=== PATIENT | female | born 1995 | race Caucasian/White ===

== ENCOUNTER 2023-12-27 09:02 | Outpatient (AMB) | payer BC, SELFPAY ==
--- NOTE | 2023-12-27 09:07 | A.OFFPC_ITS ---
Vital Signs 12/27/23 09:15 Height 5 ft 3 in Weight 205 lb 8 oz BMI 36.4 BP 112/70 Blood Pressure Location Lt brachial Position Sitting Respiration 16 Pulse 82 Pulse Source Pulse Oximeter Temp 98.2 F Temp Source Oral Pulse Oximetry (%) 96 Oxygen Delivery Method Room Air Intake Visit Reasons: [id number] Intake Note: patient here for new patient visit. Moisture Tester Required: No Is last menstrual period known: Yes Last menstrual period: 12/01/23 Post menopausal: No Patient : No Allergies No Known Allergies Allergy (Verified 12/27/23 09:21) Tobacco use date assessed: 12/27/23 Dental Screening Dental Screen Date: 12/27/23 Did you have a dental visit in the last 12 months?: Yes Did you have a dental problem in the last 6 months where you did not have access to dental care?: No Was dental information given to patient?: Patient has dentist HPI HPI Comments History of Present Illness Details New patient Prior PCP:?Freddy Ernst. Dr. Jessica Hayes Last office visit/CPE: About 2 month. Last extended physical exam was a year ago Acute issue(s): Hypothyroidism -She is on levothyroxine 25 mcg daily HLD -Diagnosed 2 months ago. Was not prescri bed medications Prediabetes She admits to healthy lifestyle, including healthy diet and exercise. She lost 30 lb within the last 4 months. ;She sleeps well PMHx: Hypothyroidism, prediabetes, HLD, perforated left TM (childhood) SurgHx: Oral surgery FHx: Mom: DM, HTN, HLD, Substance abuse. MGF: Clotting disorder, HTN, HLD. MGM: DM, HTN, HLD, lung cancer SocHx: Smokes 5 cigarettes daily and has been smoking for about 13 years; no more than 5 cigarettes daily. Does not drink alcohol. No recreational drugs Last eye exam was at childhood Last dental visit was a month ago Last tetanus vaccine unknown She has not been vaccinated for the flu this season but plans to get vaccinated for it at her workplace Last pap smear test was with [facility] DATA MIGRATION CONSULTANT was in 05/2023: normal. She will sign a release for her PCP to obtain record [facility] Medical History (Updated 12/27/23 @ 10:02 by Paula Cates CNP) Thyroid disease Diabetes High cholesterol Surgical History (Updated 12/27/23 @ 09:25 by Leilani Nicole MA) H/O oral surgery Family History (Updated 12/27/23 @ 09:23 by Leilani Nicole MA) Mother Substance abuse High blood pressure High cholesterol Diabetes Maternal Grandfather High blood pressure High cholesterol Clotting disorder Maternal Grandmother High blood pressure High cholesterol Diabetes Lung cancer Brother High cholesterol Social History Housing: House Patient Tobacco Use Status: Current everyday Tobacco user Tobacco use type: Cigarette Cigarette Packs Per Day: 0 Cigarettes Per Day: 5 Years Smoked: 0ver 10 years e-Cigarette/Vaping Use: Never Used Second Hand Smoke Exposure: No service: No Current occupational status: employed Current occupation: [employer] Current occupational exposures/hazards: Yes Cognitive needs: No Hearing needs: No Vision needs: No Female Reproductive History Menstrual Date of last menstrual period: 12/01/23 Questionnaire PHQ-9 Over the last 2 weeks, how often have you been bothered by any of the following problems? 1. Little interest or pleasure in doing things: not at all 2. Feeling down, depressed, or hopeless: not at all 3. Trouble falling or staying asleep, or sleeping too much: not at all 4. Feeling tired or having little energy: not at all 5. Poor appetite or overeating: not at all 6. Feeling bad about yourself - or that you are a failure or have let yourself or your family down: not at all 7. Trouble concentrating on things, such as reading the newspaper or watching television: not at all 8. Moving or speaking so slowly that other people could have noticed. Or the opposite - being so fidgety or restless that you have been moving around a lot more than usual: not at all 9. Thoughts that you would be better off or of hurting yourself in some way: not at all Total score: 0 Depression Screening Interpretation: Negative Depression Screening Done: Yes 57581 - PHQ-9 Billing: Yes Source: Developed by Drs. Stephan Bond, Angela Doe, Vasu Walker and colleagues, with an educational denton from [employer] Thrive Questionnaire Date Thrive assessed: 12/27/23 I am a: Patient What is your living situation today?: I have a steady place to live Within the past 12 months, did the food you bought not last and you didn't have the money to get more?: Never true Within the past 12 months, did you worry whether your food would run out before you got money to buy more?: Never true Do you have trouble paying for medicines?: No Do you have trouble getting transportation to medical appointments?: No Do you have trouble paying your heating and electricity bill?: No Do you have trouble taking care of your child, family member or friend?: No Do you have trouble with day-to-day activities such as bathing, preparing meals, shopping, managing finances, etc.?: No Are you currently unemployed and looking for a job?: No Are you interested in more education?: No Please select the resources that you would like help with: None Currently or been in a relationship where the following occur: No concerns re ported THRIVE Score: 0 AUDIT C Alcohol Use Questionnaire (AUDIT-C) 1. How often do you have a drink containing alcohol?: Never 3. How often do you have six or more drinks on one occasion?: Never Total Score: 0 Score Reviewed/Action Taken: Yes CURTIS-7 AMB Questionnaire CURTIS-7 Date CURTIS - 7 assessed: 12/27/23 Feeling nervous, anxious, or on edge: 0 = Not at all Not being able to stop or control worryin = Not at all Worrying too much about different things: 0 = Not at all Trouble relaxin = Not at all Being so restless that it is hard to sit still: 0 = Not at all Becoming easily annoyed or irritable: 0 = Not at all Feeling afraid as if something awful might happen: 0 = Not at all Total CURTIS-7 score (0-4 normal; 5-9 mild; 10-14 moderate; 15-21 severe): 0 Source: Developed by Drs. Stephan Bond, Angela Doe, Vasu Walker and colleagues, with an educational denton from [employer] CURTIS-7 Assessment Billing CURTIS-7 Assessment Tool: CURTIS-7 Assessment 53046 Review of Systems Const Details: Denies chills, Denies fatigue, Denies fever(s), Denies headache(s) and Denies weakness HEENT Denies change in vision, Denies dizziness, Denies headache(s), Denies hearing loss, Denies nasal congestion, Denies sinus pain, Denies sinus pressure and Denies sore throat Card Denies chest pain, Denies lightheadedness, Denies dyspnea and Denies other (palpitations) Resp Denies cough, Denies dyspnea and Denies wheezing GI Denies abdominal pain, Denies melena, Denies hematochezia, Denies change in bowel habits, Denies dyspepsia and Denies nausea Denies hematuria and Denies dysuria Musc Denies abnormal gait, Denies myalgias, Denies arthralgias, Denies numbness and Denies tingling Skin/Breast Denies rash, Denies unusual bruising and Denies wounds Neuro Denies abnormal gait, Denies dizziness, Denies headache(s), Denies memory loss, Denies numbness, Denies Sensory deficit (Neuro), Denies tingling and Denies weakness Psych Denies anxiety, Denies depression and Denies memory loss Endo Denies cold intolerance, Denies fatigue, Denies heat intolerance, Denies polydipsia and Denies polyuria Alexander/Lymph Denies easy bleeding and Denies easy bruising Aller/Immun Denies wheezing Physical exam (Primary Care) Vital Signs: Last Vital Signs Temp 98.2 F 12/27/23 09:15 Pulse 82 12/27/23 09:15 Resp 16 12/27/23 09:15 BP 112/70 12/27/23 09:15 Pulse Ox 96 12/27/23 09:15 Oxygen Delivery Method Room Air 12/27/23 09:15 BMI result Body Mass Index 36.4 Tobacco/Smoking Status: Tobacco use Status Tobacco use date assessed 12/27/23 12/27/23 09:14 Patient Tobacco Use Status Current everyday Tobacco 12/27/23 09:14 Tobacco use type Cigarette 12/27/23 09:14 e-Cigarette/Vaping Use Never Used 12/27/23 09:14 PHQ-9: PHQ-9 Score PHQ-9: Total score 0 12/27/23 10:06 Depression Screening Interpretation: Negative Thrive Assessment: Date of Thrive Assessment Date Thrive assessed 12/27/23 12/27/23 09:25 Currently or been in a relationship where the following occur: No concerns reported Const Other: General: no acute distress, well developed, alert and awake Nutritional Appearance: well nourished Orientation/consciousness: patient oriented x3 HENMT Head: Yes normocephalic and Yes atraumatic Ears: hearing grossly normal bilaterally and right TM's normal; impacted cerumen of the left ear occluding the left TM General nose exam: Normal external nose present and Normal nares present Mouth: Normal oral and palatal mucosa present and moist mucous membranes Teeth and gingiva: dentition normal Throat: Yes oropharynx normal Eyes Pupils: Equal, round and reactive pupils present and Pupil accommodation reflex normal EOM: EOMs intact bilaterally Neck Neck: Yes normal visual inspection, Yes no lymphadenopathy and Yes trachea midline Thyroid: Thyroid normal Carotids: no bruits Lymphatic: no lymphadenopathy noted Chest Chest palpation & inspection: normal inspection of the chest Resp Effort & Inspection: normal respiratory effort Auscultation: clear to auscultation bilaterally Cardio Rate: regular rate Rhythm: regular rhythm Heart sounds: S1 normal heart sound present, S2 normal heart sound present, no gallops, no murmurs and no rubs Bruits: no abdominal aortic bruits and no carotid bruits GI Palpation (GI): No Abdominal aortic bruit present, Soft to palpation, nontender, No hepatosplenomegaly present and No Rebound tenderness present Auscultation: normal bowel sounds General: Yes no CVA tenderness Back/Spine/Pelvis Back: no CVA tenderness Cervical Spine: cervical ROM normal and No Cervical spine tenderness Thoracic/Lumbar Spine: thoraco-lumbar ROM normal, No pain with thoraco-lumbar ROM, No thoracic spinal tenderness and No lumbar spinal tenderness Skin General: warm and dry. Normal skin color. Normal skin turgor Lesions: no lesions Rashes: no rashes Trauma: no lacerations or abrasions Wounds: no wounds Nails: normal Neuro General: patient oriented x3, gait normal and CN's II-XI intact bilaterally Cranial nerves: Yes Equal, round and reactive pupils present Cognition (Neuro): normal cognition Gait exam (Neuro): Normal gait present Motor exam (neuro): 5/5 motor strength present throughout Sensory Exam: No Sensory deficit (Neuro) Deep tendon reflexes (DTR's): Right patellar reflex intensity grade: 2+ and Left patellar reflex intensity grade: 2+ Extrem General: Yes normal to inspection, No edema and No calf tenderness Psych Appearance: grossly normal Affect: normal affect Attitude: cooperative Thought process: Normal thought process present Immunizations Boostrix Tdap 2.5 Lf unit-8 mcg-5 Lf/0.5 mL intramuscular syringe Performing Provider: Paula Cates CNP Performing Location: [facility] Administered by: Fátima Lomeli RN on 12/27/23 10:00 Dose Route Admin Location Dispensed Lot Number Expiration Date [facility] Clarity Developer 0.5 mL IM Right Deltoid 0.5 mL [id number] 12/31/25 [id number] [employer]LA[employer]OSMITH[employer] VIS Given Date VIS Provided VIS Publication Date 12/27/23 Single Vaccine 20 Eligibility Eligibility Date Funding Source Not [facility] Eligible 12/27/23 Private Coding Level of Care Code New Pt Prev Care 18-39yr([id number] Diagnoses Normal physical examination, routine Z00.00 Prediabetes R73.03 Hypothyroidism E03.9 Obesity (BMI 30-39.9) E66.9 Impacted cerumen of left ear H61.22 Routine eye exam Z01.00 Vaccine for tetanus toxoid Z23 Laboratory tests ordered as part of a complete physical exam (CPE) Z00.00 Additional Codes CURTIS-7 Assessment Billing - CURTIS-7 Assessment Tool: CURTIS-7 Assessment 92158 ([id number]) Assessment & Plan Assessment & Plan (1) Normal physical examination, routine: Code(s): Z00.00 - Encounter for general adult medical examination without abnormal findings Category: Medical Plan: No significant physical restrictions or limitations noted Healthy diet and routine exercise encouraged Advised to get lab work done and follow-up for telehealth visit in 2-3 weeks for labs review Return with symptoms or concerns Verbalized understanding and agreed with treatment plan (2) Prediabetes: Code(s): R73.03 - Prediabetes Category: Medical Plan: History of prediabetes. Will check A1c (3) Hypothyroidism: Code(s): E03.9 - Hypothyroidism, unspecified Category: Medical Plan: Currently on levothyroxine 25 mcg daily Will check TSH/T4 levels and make changes as needed (4) Obesity (BMI 30-39.9): Code(s): E66.9 - Obesity, unspecified Category: Medical Plan: She currently weighs 205 lb, BMI is 36.4 Declines referral for weight management at this time and notes she will continue with healthy lifestyle. She lost 30 lb within the last 4 months Healthy diet and routine exercise encouraged She may inform her PCP if she needs a referral for weight management Verbalized understanding and agreed with the plan (5) Impacted cerumen of left ear: Code(s): H61.22 - Impacted cerumen, left ear Category: Medical Plan: Impacted cerumen of the left ear occluding the left TM Hearing normal History of perforated left TM at childhood May return for ear lavage as needed Verbalized understanding and agreed with the plan (6) Routine eye exam: Code(s): Z01.00 - Encounter for examination of eyes and vision without abnormal findings Category: Medical Plan: Her last eye exam was at childhood Referral made for routine eye exam (7) Vaccine for tetanus toxoid: Code(s): Z23 - Encounter for immunization Category: Medical Plan: Unknown tetanus vaccine status Tetanus vaccine administered today by our nurse (8) Laboratory tests ordered as part of a complete physical exam (CPE): Code(s): Z00.00 - Encounter for general adult medical examination without abnormal findings Category: Medical Plan: Fasting labs ordered as part of a complete physical exam. Advised to fast for at least 10 hours before getting labs drawn. May drink water Verbalized understanding and agreed with treatment plan. Orders: Orders TSH reflex Free T4 Today Z00.00 - Encounter for general adult medical examination without abnormal findings UA CC w/rflx Micro + Cult Today Z00.00 - Encounter for general adult medical examination without abnormal findings Hemoglobin A1c Today Z00.00 - Encounter for general adult medical examination without abnormal findings Complete Blood Count Auto Diff Today Z00.00 - Encounter for general adult medical examination without abnormal findings Comprehensive [place]. Panel Fast Today Z00.00 - Encounter for general adult medical examination without abnormal findings Lipid Panel Today Z00.00 - Encounter for general adult medical examination without abnormal findings TDaP Immunization Today Z23 - Encounter for immunization Referrals Ophthalmology Referral Z01.00 - Encounter for examination of eyes and vision without abnormal findings Medications: New levothyroxine 25 mcg PO DAILY 30 tabs 3RF 30 days
[2023-12-27 09:15] VITALS: BP 112/70; PULSE 82; RESP 16; TEMP 36.8; O2SAT 96; BMI 36.4
== END 2023-12-27 10:00 | disposition home or self-care (01) ==
PROVIDERS: Visit Provider Nurse Practitioner Family
DX: Z00.00 Encounter for general adult medical examination without abnormal findings (principal); R73.03 Prediabetes; E66.812 Obesity, class 2; Z68.36 Body mass index [BMI] 36.0-36.9, adult; E03.9 Hypothyroidism, unspecified; H61.22 Impacted cerumen, left ear; Z23 Encounter for immunization

== ENCOUNTER → 2023-12-27 09:02 | Outpatient (BNVA) | payer BC, SELFPAY | PROVIDERS: Visit Provider Nurse Practitioner Family | DX: Z00.01 Encounter for general adult medical examination with abnormal findings (principal); R73.03 Prediabetes; E03.9 Hypothyroidism, unspecified; E66.9 Obesity, unspecified; H61.22 Impacted cerumen, left ear; Z79.899 Other long term (current) drug therapy; Z23 Encounter for immunization | CPT/HCPCS: 90471; 90715; 96127 ==

== ENCOUNTER 2023-12-27 10:21 | Outpatient (REF) | payer BC, SELFPAY ==
[2023-12-27 13:59] LABS: MANUAL DIFF FLAG NO
[2023-12-27 14:02] LABS: Basophils Percent Auto 0.4 % (0-2); Eosinophils Absolute Auto 0.1 X10*3/uL (0.0-0.4); Hematocrit 39.9 % (37.0-47.0); Hemoglobin 13.8 g/dl (12.0-16.0); Imm Gran Abs Auto 0.02 X10*3/uL (0.00-0.03); Imm Gran Pct Auto 0.3 % (0.0-0.4); Lymphocytes Absolute Auto 1.4 X10*3/uL (1.2-4.9); Lymphocytes Percent Auto 21.2 % (20-40); Mean Corpuscular HGB Conc 34.6 g/dl (31.0-35.0); Mean Corpuscular Hemoglobin 29.9 pg (27.0-33.0); Mean Corpuscular Volume 86.4 fL (80.0-98.0); Mean Platelet Volume 10.7 fL (9.4-12.3); Monocytes Absolute Auto 0.4 X10*3/uL (0.1-1.2); Monocytes Percent Auto 6.2 % (2-11); Neutrophils Absolute Auto 4.8 x10*3/uL (2.0-8.3); Neutrophils Percent Auto 70.9 % (45-73); Platelet Count 264 X10*3/uL (160-400); Red Blood Count 4.62 X10*6/uL (4.20-5.50); Red Cell Distribution Width 11.9 % (11.0-16.0); White Blood Count 6.7 X10*3/uL (4.8-10.8)
[2023-12-27 14:10] LABS: Estimated Average Glucose 105 mg/dL; Hemoglobin A1C 116.2578 umol/L; Hemoglobin A1c % 5.3 % (<6.0); Total Hemoglobin (HGBA1C) 3365.5139 umol/L
[2023-12-27 14:24] LABS: Alanine Aminotransferase 13 U/L (0-31); Albumin Level 4.4 g/dL (3.5-5.0); Alkaline Phosphatase 72 U/L (39-117); Anion Gap 12 (12-20); Aspartate Amino Transferase 23 U/L (5-31); Bilirubin Total 0.5 mg/dL (0.0-1.0); Blood Urea Nitrogen 11 mg/dL (9-16); Calcium 9.6 mg/dL (8.4-10.2); Carbon Dioxide 24 mmol/L (22-29); Chloride 105 mmol/L (96-108); Cholesterol 192 mg/dL (<200); Estimated Glomerular Filt Rate > 60; Glucose Fasting 89 mg/dL (60-99); HDL Cholesterol 35 mg/dL (>40); LDL Cholesterol Calculated 137 mg/dL (<100); Potassium 4.1 mmol/L (3.3-5.1); Sodium 137 mmol/L (135-145); Total Protein 7.9 g/dL (6.5-8.0); Triglycerides 104 mg/dL (<150)
[2023-12-27 14:34] LABS: TSH reflex Free T4 2.93 uIU/mL (0.32-4.0)
== END 2023-12-27 10:22 | disposition home or self-care (01) ==
LOC: HO.WFDLDS 10:21
PROVIDERS: Visit Provider Nurse Practitioner Family
DX: Z00.00 Encounter for general adult medical examination without abnormal findings (principal)
CPT/HCPCS: 36415; 80053; 80061; 83036; 84443; 85025

== ENCOUNTER 2024-01-13 15:22 | Outpatient (AMB) | payer BC, SELFPAY ==
--- NOTE | 2024-01-13 09:14 | A.OFFPC_ITS ---
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 She is followed by [facility] Medical History (Updated 01/13/24 @ 09:16 by Paula Cates CNP) Thyroid disease Diabetes Surgical History (Updated 12/27/23 @ 09:25 by Leilani Nicole MA) H/O oral surgery Family History (Updated 12/27/23 @ 09:23 by Leilani Nicole MA) Mother Substance abuse High blood pressure High cholesterol Diabetes Maternal Grandfather High blood pressure High cholesterol Clotting disorder Maternal Grandmother High blood pressure High cholesterol Diabetes Lung cancer Brother High cholesterol Social History Housing: House Patient Tobacco Use Status: Current everyday Tobacco user Tobacco use type: Cigarette Cigarette Packs Per Day: 0 Cigarettes Per Day: 5 Years Smoked: 0ver 10 years Packs Per Year: 0 Packs per year/per ci.00 e-Cigarette/Vaping Use: Never Used Second Hand Smoke Exposure: No Patient : No service: No Current occupational status: employed 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 Stephan Bond, Angela Doe, Vasu Walker and colleagues, with an educational denton from [employer]. Review of Systems Const Details: Const Denies chills, Denies fatigue, Denies fever(s), Denies headache(s) and Denies weakness ENT Denies dizziness and Denies headache(s) Card Denies chest pain, Denies lightheadedness, Denies dyspnea and Denies other (Palpitations) Resp Denies cough, Denies dyspnea, Denies wheezing and Denies other ( shortness of breath) GI Denies abdominal pain, Denies melena, Denies hematochezia, Denies change in bowel habits, Denies dyspepsia and Denies nausea Denies hematuria and Denies dysuria Musc Denies abnormal gait, Denies myalgias, Denies arthralgias, Denies numbness and Denies tingling Skin/Breast Denies rash, Denies unusual bruising and Denies wounds Neuro Denies abnormal gait, Denies dizziness, Denies headache(s), Denies memory loss, Denies numbness, Denies Sensory deficit (Neuro), Denies tingling and Denies weakness Psych Denies anxiety, Denies depression, Denies memory loss Endo Denies cold intolerance, Denies fatigue, Denies heat intolerance, Denies polydipsia and Denies polyuria Aller/Immun Denies wheezing Physical exam (Primary Care) Tobacco/Smoking Status: Tobacco use Status Tobacco use date assessed 01/13/24 01/13/24 15:19 Patient Tobacco Use Status Current everyday Tobacco 01/13/24 09:18 Tobacco use type Cigarette 01/13/24 09:18 e-Cigarette/Vaping Use Never Used 01/13/24 09:18 Thrive Assessment: Date of Thrive Assessment Date Thrive assessed 12/27/23 01/13/24 09:18 Const Other: Telehealth visit. No physical exam Telehealth Telehealth Telehealth Platform: Telephone Location of provider rendering services: practice address Location of patient: address on file Patient Identification confirmed using: Name, : Yes Telehealth method: voice only Patient verbally consented to treatment: Yes Patient verbally consented to billing insurance company: Yes Patient informed of any privacy concerns related to visit: Yes Coding Level of Care Code Tele Est Pt Level 3 (43611) Diagnoses Hypercholesterolemia E78.00 Time Spent (min) 10 Assessment & Plan Assessment & Plan (1) Hypercholesterolemia: Code(s): E78.00 - Pure hypercholesterolemia, unspecified Category: Medical Plan: Recent lab results reviewed with the patient; unremarkable findings except for slightly elevated LDL and slightly low HDL, 137 and 35 respectively Advised to limit foods high in saturated fat and avoid foods high in trans fat Routine exercise encouraged Will recheck lipid panel levels. Advised to fast for 10-12 hours, may drink water only, and get blood work done a few days before her next visit Follow-up for telehealth visit in 3 months Verbalized understanding and agreed with the plan Orders: Orders Lipid Panel 3 Months E78.00 - Pure hypercholesterolemia, unspecified
== END 2024-01-13 15:58 | disposition home or self-care (01) ==
LOC: HO.HMCFM 15:22
PROVIDERS: PCP Nurse Practitioner Family; Visit Provider Nurse Practitioner Family
DX: E78.00 Pure hypercholesterolemia, unspecified (principal)

== ENCOUNTER → 2024-01-13 15:22 | Outpatient (BNVA) | payer BC, SELFPAY | PROVIDERS: PCP Nurse Practitioner Family; Visit Provider Nurse Practitioner Family ==

== ENCOUNTER 2024-04-29 08:30 | Outpatient (REF) | payer BC, MEDICAID, SELFPAY ==
[2024-04-29 10:25] LABS: Cholesterol 247 mg/dL (<200); HDL Cholesterol 61 mg/dL (>40); LDL Cholesterol Calculated 131 mg/dL (<100); Triglycerides 276 mg/dL (<150)
== END 2024-04-29 08:31 | disposition home or self-care (01) ==
LOC: HO.HMGCLDS 08:30
PROVIDERS: PCP Nurse Practitioner Family; Visit Provider Nurse Practitioner Family
DX: E78.00 Pure hypercholesterolemia, unspecified (principal)
CPT/HCPCS: 36415; 80061

== ENCOUNTER 2024-05-06 14:14 | Outpatient (AMB) | payer BC, MEDICAID, SELFPAY ==
--- NOTE | 2024-05-06 14:04 | A.OFFPC_ITS ---
Intake Visit Reasons: Blood work F/U Intake Note: [facility] Dressmaker Or Tailor Required: No Is last menstrual period known: Yes Last menstrual period: 11/06/23 Post menopausal: No Patient : Yes Allergies No Known Allergies Allergy (Verified 05/06/24 14:04) Tobacco use date assessed: 05/06/24 Dental Screening Dental Screen Date: 05/06/24 Did you have a dental visit in the last 12 months?: Yes Did you have a dental problem in the last 6 months where you did not have access to dental care?: No Was dental information given to patient?: Patient has dentist HPI HPI Comments History of Present Illness Details 28-year-old [facility] lab results. She admits to making healthy dietary changes and exercising routinely. She offers no complaints and denies acute symptoms at this time. She is 22 weeks with no complications so far. 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 [facility] Medical History (Updated 05/06/24 @ 15:17 by Paula Cates CNP) Thyroid disease Diabetes Surgical History (Updated 12/27/23 @ 09:25 by Leilani Nicole MA) H/O oral surgery Family History (Updated 12/27/23 @ 09:23 by Leilani Nicole MA) Mother Substance abuse High blood pressure High cholesterol Diabetes Maternal Grandfather High blood pressure High cholesterol Clotting disorder Maternal Grandmother High blood pressure High cholesterol Diabetes Lung cancer Brother High cholesterol Social History Housing: House Patient Tobacco Use Status: Current everyday Tobacco user Tobacco use type: Cigarette Cigarette Packs Per Day: 0 Cigarettes Per Day: 5 Years Smoked: 0ver 10 years e-Cigarette/Vaping Use: Never Used Second Hand Smoke Exposure: No service: No Current occupational status: employed Current occupation: [employer] Current occupational exposures/hazards: Yes Cognitive needs: No Hearing needs: No Vision needs: No Female Reproductive History Menstrual Date of last menstrual period: 11/06/23 Questionnaire Thrive Questionnaire Date Thrive assessed: 12/27/23 CURTIS-7 AMB Questionnaire CURTIS-7 Date CURTIS - 7 assessed: 12/27/23 Source: Developed by Drs. Stephan Bond, Angela Doe, Vasu Walker and colleagues, with an educational denton from [employer]. Review of Systems Const Details: Denies chills, Denies fatigue, Denies fever(s), Denies headache(s) and Denies weakness Cardiac Denies chest pain, Denies claudication, Denies leg edema, Denies lightheadedness, Denies palpitations, Denies dyspnea, Denies dyspnea on exertion, Denies orthopnea and Denies other (Loss of consciousness) Resp Denies cough, Denies excessive phlegm production, Denies dyspnea, Denies dyspnea on exertion, Denies snoring and Denies wheezing Physical exam (Primary Care) Tobacco/Smoking Status: Tobacco use Status Tobacco use date assessed 05/06/24 05/06/24 14:10 Patient Tobacco Use Status Current everyday Tobacco 05/06/24 14:10 Tobacco use type Cigarette 05/06/24 14:10 e-Cigarette/Vaping Use Never Used 05/06/24 14:10 Thrive Assessment: Date of Thrive Assessment Date Thrive assessed 12/27/23 05/06/24 14:10 Const Other: Telehealth visit. No physical exam Telehealth Telehealth Telehealth Platform: Telephone Location of provider rendering services: practice address Location of patient: address on file Patient Identification confirmed using: Name, : Yes Telehealth method: voice only Patient verbally consented to treatment: Yes Patient verbally consented to billing insurance company: Yes Patient informed of any privacy concerns related to visit: Yes Coding Level of Care Code Tele Est Pt Level 3 (25361) Diagnoses Hyperlipidemia E78.5 Hypothyroidism E03.9 Time Spent (min) 15 Assessment & Plan Assessment & Plan (1) Hyperlipidemia: Code(s): E78.5 - Hyperlipidemia, unspecified Category: Medical Plan: Previous triglyceride level is elevated 272 form 102, total cholesterol 224 from 192, LDL 131 from 131. HDL level is normal, 61. She is 22 weeks and lipid levels rise during to support the fetus. Rest to limit foods high in saturated fat and avoid foods high in trans fat. Routine exercise encouraged. Advised to fast for 10-12 hours, may drink water, and get lipid panel blood work done 2-3 days before next visit. Follow-up for telehealth visit for hyperlipidemia in 2 months or sooner with symptoms or concerns. Verbalized understanding and agreed with treatment plan. (2) Hypothyroidism: Code(s): E03.9 - Hypothyroidism, unspecified Category: Medical Plan: Continue current treatment regimen. Will recheck TSH and T4 levels in 2 months. Verbalized understanding and agreed with treatment plan. Orders: Orders TSH reflex Free T4 2 Months E03.9 - Hypothyroidism, unspecified Lipid Panel 2 Months E78.5 - Hyperlipidemia, unspecified
== END 2024-05-06 16:46 | disposition home or self-care (01) ==
LOC: HO.HMCFM 14:14
PROVIDERS: PCP Nurse Practitioner Family; Visit Provider Nurse Practitioner Family
DX: E78.5 Hyperlipidemia, unspecified (principal); E03.9 Hypothyroidism, unspecified

== ENCOUNTER → 2024-05-06 14:14 | Outpatient (BNVA) | payer BC, MEDICAID, SELFPAY | PROVIDERS: PCP Nurse Practitioner Family; Visit Provider Nurse Practitioner Family ==

== ENCOUNTER 2024-09-29 08:48 | Outpatient (REF) | payer BC, MEDICAID, SELFPAY ==
[2024-09-29 11:39] LABS: Cholesterol 208 mg/dL (<200); HDL Cholesterol 42 mg/dL (>40); Triglycerides 144 mg/dL (<150)
== END 2024-09-29 08:49 | disposition home or self-care (01) ==
LOC: HO.HMGCLDS 08:48
PROVIDERS: PCP Nurse Practitioner Family; Visit Provider Nurse Practitioner Family
DX: E03.9 Hypothyroidism, unspecified (principal); E78.5 Hyperlipidemia, unspecified
CPT/HCPCS: 36415; 80061; 84443

== ENCOUNTER 2024-10-06 13:38 | Outpatient (AMB) | payer BC, MEDICAID, SELFPAY ==
--- NOTE | 2024-10-06 13:35 | A.OFFPC_ITS ---
Intake Visit Reasons: Follow up HLD Intake Note: patient here for follow up on HLD Public Policy Manager Required: No Is last menstrual period known: No (gave 9 months ago no period yet) Post menopausal: No Patient : No Allergies No Known Allergies Allergy (Verified 10/06/24 13:36) Tobacco use date assessed: 10/06/24 Dental Screening Dental Screen Date: 10/06/24 Did you have a dental visit in the last 12 months?: Yes Did you have a dental problem in the last 6 months where you did not have access to dental care?: No Was dental information given to patient?: Patient has dentist HPI HPI Comments History of Present Illness Details 29-year-old female presents for hyperlip idemia and hypothyroidism follow-up. She notes that she has been taking levothyroxine 25 mcg daily without adverse reactions. She admits to making healthy dietary choices and exercising routinely. She delivered a baby boy about a month ago and doing well. She offers no complaints and denies acute symptoms at this time. [facility] Medical History (Updated 05/06/24 @ 15:17 by Paula Cates CNP) Thyroid disease Diabetes Surgical History (Updated 12/27/23 @ 09:25 by Leilani Nicole MA) H/O oral surgery Family History (Updated 12/27/23 @ 09:23 by Leilani Nicole MA) Mother Substance abuse High blood pressure High cholesterol Diabetes Maternal Grandfather High blood pressure High cholesterol Clotting disorder Maternal Grandmother High blood pressure High cholesterol Diabetes Lung cancer Brother High cholesterol Social History Housing: House Patient Tobacco Use Status: Current everyday Tobacco user Tobacco use type: Cigarette Cigarette Packs Per Day: 0 Cigarettes Per Day: 5 Years Smoked: 0ver 10 years Packs Per Year: 0 Packs per year/per ci.00 e-Cigarette/Vaping Use: Never Used Second Hand Smoke Exposure: No Patient : No service: No Current occupational status: employed 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 Stephan Bond, Angela Doe, Vasu Walker and colleagues, with an educational denton from [employer]. Review of Systems Const Details: Denies chills, Denies fatigue, Denies fever(s), Denies headache(s) and Denies weakness Cardiac Denies chest pain, Denies claudication, Denies leg edema, Denies lightheadedness, Denies palpitations, Denies dyspnea, Denies dyspnea on exertion, Denies orthopnea and Denies other (Loss of consciousness) Resp Denies cough, Denies excessive phlegm production, Denies dyspnea, Denies dyspnea on exertion, Denies snoring and Denies wheezing Physical exam (Primary Care) Tobacco/Smoking Status: Tobacco use Status Tobacco use date assessed 10/06/24 10/06/24 13:38 Patient Tobacco Use Status Current everyday Tobacco 10/06/24 13:38 Tobacco use type Cigarette 10/06/24 13:38 e-Cigarette/Vaping Use Never Used 10/06/24 13:38 Thrive Assessment: Date of Thrive Assessment Date Thrive assessed 12/27/23 10/06/24 13:38 Const Other: Patient is alert and oriented x3 Telehealth Telehealth Telehealth Platform: Telephone Location of provider rendering services: practice address Location of patient: address on file Patient Identification confirmed using: Name, : Yes Telehealth method: voice only Patient verbally consented to treatment: Yes Patient verbally consented to billing insurance company: Yes Patient informed of any privacy concerns related to visit: Yes Coding Level of Care Code Tele Est Pt Level 3 (30729) Diagnoses Hyperlipidemia E78.5 Hypothyroidism E03.9 Time Spent (min) 15 Assessment & Plan Assessment & Plan (1) Hyperlipidemia: Code(s): E78.5 - Hyperlipidemia, unspecified Category: Medical Plan: Recent total cholesterol and LDL levels slightly elevated, 208 and 138 respectively; previous levels were 247 and 131 respectively. Recent triglycerides and HDL levels are normal. Advised to limit foods high in saturated fat and avoid foods high in trans fat. Routine exercise encouraged. Fast for 10-12 hours, may drink water, and perform lipid panel blood work 2-3 days before next visit. Follow-up for telehealth visit in 3 months. Return sooner with symptoms or concerns. Verbalized understanding and agreed with the treatment plan. (2) Hypothyroidism: Code(s): E03.9 - Hypothyroidism, unspecified Category: Medical Plan: Recent TSH level was normal. Continue current treatment regimen. Will monitor TSH level every 6-12 months. Verbalized understanding and agreed with the plan. Orders: Orders Lipid Panel 3 Months E78.5 - Hyperlipidemia, unspecified Medications: Changed From levothyroxine 25 mcg PO DAILY 30 days 30 tabs 3RF To levothyroxine 25 mcg PO DAILY 90 tabs 1RF 90 days
== END 2024-10-06 14:29 | disposition home or self-care (01) ==
LOC: HO.HMCFM 13:38
PROVIDERS: PCP Nurse Practitioner Family; Visit Provider Nurse Practitioner Family
DX: E78.5 Hyperlipidemia, unspecified (principal); E03.9 Hypothyroidism, unspecified

== ENCOUNTER → 2024-10-06 13:38 | Outpatient (BNVA) | payer BC, MEDICAID, SELFPAY | PROVIDERS: PCP Nurse Practitioner Family; Visit Provider Nurse Practitioner Family | DX: E78.5 Hyperlipidemia, unspecified (principal); E03.9 Hypothyroidism, unspecified | CPT/HCPCS: 98967 ==

== ENCOUNTER 2024-12-22 09:03 | Outpatient (REF) | payer BC, MEDICAID, SELFPAY ==
--- OUTSIDE RECORDS SUMMARY | 2024-12-22 09:46 | XMS_ITS | Clinical Summary ---
Author Organization [facility] Address [address] [place] [id number] Phone Care Team Providers Care Bed Control Specialist Name Role Phone Jessica Hayes IMMIGRATION INSPECTOR Primary Care Provider + Allergies No known active allergies Medications phenazopyridine (PYRIDIUM) 200 MG tablet Take 1 tablet (200 mg total) by mouth 3 (three) times a day as needed for pain (specific location in comments). 10 tablet 01/27/2020 Active dextroamphetami ne-amphetamine (ADDERALL XR) 20 MG 24 hr capsule 07/30/2021 Active dextroamphetami ne-amphetamine (ADDERALL) 10 mg Tab tablet TAKE 1 TABLET BY MOUTH TWICE A DAY (DNF 07/24/21) 07/24/2021 Active Active Problems Problem Noted Date Diagnosed Date Abnormal kidney function 08/01/2021 Overview (08/01/2021): Managed by PCPPt reports recent physcial at PCP and was informed due to blood test results pt has an impaired kidney Anemia 08/01/2021 Depressive disorder 08/01/2021 Overview (08/01/2021): Managed by psychiatristPt reports she is currently on an antidepressant: Viibryd 20mg QD Genital herpes simplex 08/01/2021 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 Overview (08/01/2021): Managed by PCPNew dx from recent physical performed at PCP: pt currently on Levothyroxine 25mcg QD Immunizations Immunization Administration Dates Next Due COVID-19 (Pre-01/14) Moderna Vaccine, mRNA, PF 02/24/2021,05/20/2020,04/22/2020 DTaP 11/03/2004, 9,12/30/1995,12/11,1994,1994 [id number] 09/23/1995, 5,1994,07/23 HPV,quadrivalent 02/23/2009,06/29/2008, 9 Hepatitis B 1994,1994,1994 Hepatitis B Adult 08/07/2016,03/05/2016,02/02/20 16 IPV 06/16/1998, 5,1994,07/23 Influenza Quadrivalent MDCK Preservative Free IM 11/01/2015 Influenza Quadrivalent Prese rvative Free IM 12/26/2020,12/10/2018,11/04/2017,10/26 Influenza, Unspecified Formulation 01/10/2022,,12/25/2019 MMR 06/16/1998,06/28/1995 Meningococcal MCV4P 11/05/2011,04/22/2008 Tdap 07/24/2013,04/22/2008 Varicella 02/23/2009,11/24/1997 Social History Tobacco Use Types Packs/Day Years Used Date Smoking Tobacco: Former Smokeless Tobacco: Never Education Answer Date Recorded Are you interested in more education? Not on henry e 07/20/2022 Are you concerned about learning? Not on file 07/20/2022 No 07/20/2022 No 07/20/2022 Digital Access Answer Date Recorded No 08/18/2022 No 08/18/2022 Reliable internet access at home? Not on file 08/18/2022 Device with a working camera? Not on file Comments Unknown Sex and Gender Information Value Date Recorded Sex Assigned at Female 01/27/2020 5:05 PM EST Legal Sex Female 10:30 AM EST Gender Identity Female 01/27/2020 5:05 PM EST Sexual Orientation Not on file Last Filed Vital Signs Vital Sign Reading Time Taken Comments Blood Pressure 134/80 08/01/2021 3:47 PM EDT Pulse 110 08/01/2021 3:47 PM EDT Temperature 37.1 C (98.7 F) 08/01/2021 3:47 PM EDT Respiratory Rate 18 08/01/2021 3:47 PM EDT Oxygen Saturation 98% 08/01/2021 3:47 PM EDT Inhaled Oxygen Concentration - - Weight 83.9 kg (185 lb) 08/01/2021 3:47 PM EDT Height 160 cm (5' 3 ) 01/27/2020 5:06 PM EST Body Mass Index 32.77 01/27/2020 5:06 PM EST Plan of Treatment Health Maintenance Due Date Last Done Comments DEPRESSION SCREENING 2006 SMOKING Hx and SMOKELESS TOBACCO SCREENING 06/03/2007 HEPATITIS C SCREENING 2012 HIV ONE-TIME SCREENING (18-65 YEARS) 2012 PAP SMEAR 06/03/2015 Adult Td,Tdap Booster 07/25/2023 07/24/2013, 009 INFLUENZA VACCINE (#1) 2024 2, 12/26/2020, 12/25/2019, Additional history exists COVID-19 VACCINE ( season) 2024 02/24/2021, 05/20/2020, 04/22/2020 HIB VACCINES Completed 09/23/1995, 03/1994, 1994, Additional history exists MENINGOCOCCAL VACCINES (ACWY) Completed 11/05/2011, 04/22/2008 HEPATITIS A VACCINES Aged Out No long er eligible based on patient's age to complete this topic MENINGOCOCCAL VACCINES (B) Aged Out N o longer eligible based on patient's age to complete this topic PNEUMOCOCCAL VACCINES (0-49 years) Aged Out No longer eligible based on patient's age to complete this topic Medical Devices Not on file Insurance BLUE CROSS OUT OF STATE PPO [place]OSS OUT OF [facility] PPO [address] [place] [id number] [place] CROSS OUT OF STATE PPO [place] CROSS OUT OF STATE PPO [place] CROSS OUT OF STATE PPO BL[place] CROSS OUT OF STATE PPO [place] OF STATE PPO [place]OSS OUT OF STATE PPO [place]OSS OUT OF STATE PPO Care Teams Bed Control Specialist Relationship Specialty Start Date End Date Jessica Hayes NP [address] [place] [id number] PCP - General Family Medicine 08/01/21 Additional Source Comments The information contained in this document represents components of the legal health record. It is not the complete legal health record.[facility]
[2024-12-22 11:32] LABS: Cholesterol 181 mg/dL (<200); HDL Cholesterol 36 mg/dL (>40); Triglycerides 173 mg/dL (<150)
== END 2024-12-22 09:04 | disposition home or self-care (01) ==
LOC: HO.HMGCLDS 09:03
PROVIDERS: PCP Nurse Practitioner Family; Visit Provider Nurse Practitioner Family
DX: E78.5 Hyperlipidemia, unspecified (principal)
CPT/HCPCS: 36415; 80061

== ENCOUNTER 2025-01-08 12:44 | Outpatient (AMB) | payer BC, MEDICAID, SELFPAY ==
--- NOTE | 2025-01-08 12:32 | A.OFFPC_ITS ---
Int[facility] Intake Note: patient here for for 3 month Telehealth follow up on HLD Roustabout Head Required: No Is last menstrual period known: Yes Last menstrual period: 01/05/25 Post menopausal: No Patient : No Allergies No Known Allergies Allergy (Verified 01/08/25 12:32) Tobacco use date assessed: 01/08/25 Dental Screening Dental Screen Date: 01/08/25 Did you have a dental visit in the last 12 months?: Yes Did you have a dental problem in the last 6 months where you did not have access to dental care?: No Was dental information given to patient?: Patient has dentist HPI HPI Comments History of Present Illness Details 29-year-old female [facility] follow-up. She takes levothyroxine as prescribed without adverse reactions. She admits to making healthy lifestyle changes. She has lost 40 lb 4 months . She denies acute symptoms at this time. [facility] Medical History (Updated 05/06/24 @ 15:17 by Paula Cates CNP) Thyroid disease Diabetes Surgical History (Updated 12/27/23 @ 09:25 by Leilani Nicole MA) H/O oral surgery Family History (Updated 12/27/23 @ 09:23 by Leilani Nicole MA) Mother Substance abuse High blood pressure High cholesterol Diabetes Maternal Grandfather High blood pressure High cholesterol Clotting disorder Maternal Grandmother High blood pressure High cholesterol Diabetes Lung cancer Brother High cholesterol Social History Housing: House Patient Tobacco Use Status: Current everyday Tobacco user Tobacco use type: Cigarette Cigarette Packs Per Day: 0 Cigarettes Per Day: 5 Years Smoked: 0ver 10 years Packs Per Year: 0 Packs per year/per ci.00 e-Cigarette/Vaping Use: Never Used Second Hand Smoke Exposure: No Patient : No service: No Current occupational status: employed 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 Stephan Bond, Angela Doe, Vasu Walker and colleagues, with an educational denton from [employer]. Review of Systems Const Details: Denies chills, Denies fatigue, Denies fever(s), Denies headache(s) and Denies weakness Cardiac Denies chest pain, Denies claudication, Denies leg edema, Denies lightheadedness, Denies palpitations, Denies dyspnea, Denies dyspnea on exertio n, Denies orthopnea and Denies other (Loss of consciousness) Resp Denies cough, Denies excessive phlegm production, Denies dyspnea, Denies dyspnea on exertion, Denies snoring and Denies wheezing Physical exam (Primary Care) Tobacco/Smoking Status: Tobacco use Status Tobacco use date assessed 01/08/25 01/08/25 12:34 Patient Tobacco Use Status Current everyday Tobacco 01/08/25 12:34 Tobacco use type Cigarette 01/08/25 12:34 e-Cigarette/Vaping Use Never Used 01/08/25 12:34 Thrive Assessment: Date of Thrive Assessment Date Thrive assessed 12/27/23 01/08/25 12:34 Const Other: Patient is alert and oriented x3 Telehealth Telehealth Telehealth Platform: Telephone Location of provider rendering services: practice address Location of patient: address on file Patient Identification confirmed using: Name, : Yes Telehealth method: voice only Patient verbally consented to treatment: Yes Patient verbally consented to billing insurance company: Yes Patient informed of any privacy concerns related to visit: Yes Coding Level of Care Code Tele Est Pt Level 3 (13503) Diagnoses Hyperlipidemia E78.5 Time Spent (min) 10 Assessment & Plan Assessment & Plan (1) Hyperlipidemia: Code(s): E78.5 - Hyperlipidemia, unspecified Category: Medical Plan: Recent triglyceride level is slightly elevated, 173, LDL is slightly elevated, 111 from 138, HDL level is slightly low, 36, total cholesterol is normal. Advised to limit foods high in saturated fat and avoid foods high in trans fat. Routine exercise encouraged. Perform fasting lab work a few days before next visit. Follow-up for telehealth visit in 3 months. Will also recheck TSH/T4. Verbalized understanding and agreed with the plan. Orders: Orders Lipid Panel 3 Months E78.5 - Hyperlipidemia, unspecified TSH reflex Free T4 3 Months E03.9 - Hypothyroidism, unspecified
--- OUTSIDE RECORDS SUMMARY | 2025-01-08 15:02 | XMS_ITS | Clinical Summary ---
Author Organization [facility] Address [address] [place] [phone] Phone Care Team Providers Care Insulation Sprayer Name Role Phone Jessica Hayes AUTOMOTIVE MANUFACTURER Primary Care Provider + Allergies No known [...] Vaccine, mRNA, PF 02/24/2021,05/20/2020,04/22/2020 DTaP 11/03/2004, 9,12/30/1995,12/11,1994,1994 [id number] 09/23/1995, 5,1994,07/23 HPV,quadrivalent 02/23/2009,06/29/2008, 9 Hepatitis B [...] Insurance BLUE CROSS OUT OF STATE PPO [place] OF [facility] PPO [address] [place] [id number] [place] OF STATE PPO [place] CROSS OUT OF STATE PPO [place]OSS OUT OF STATE PPO BLUE CROSS OUT OF STATE PPO [place]OSS OUT OF STATE PPO BL[employer] CROSS OUT OF STATE PPO [place] [employer]OSS OUT OF STATE PPO Care Teams Insulation Sprayer Relationship Specialty Start Date End Date Jessica Hayes NP [address] [place] [id number] PCP - General Family Medicine 08/01/21 Additional Source Comments The information contained in this document represents components of the legal health record. It is not the complete legal health record.[facility]
== END 2025-01-08 13:06 | disposition home or self-care (01) ==
LOC: HO.HMCFM 12:44
PROVIDERS: PCP Nurse Practitioner Family; Visit Provider Nurse Practitioner Family
DX: E78.5 Hyperlipidemia, unspecified (principal)